=== PATIENT | female | born 1990 | race Caucasian/White ===

== ENCOUNTER 2017-02-10 10:01 | Inpatient (IN) | payer OTHER ==
[~2017-02-10] VITALS: Ht 157.5 cm; Wt 74.8 kg
[2017-02-10 12:41] LABS: BASOPHIL % 0.2 % (0-2); PLATELET COUNT 329 x10^3mcL (130-400); RED CELL DISTRIBUTION WIDTH 13.5 % (11.5-14.5)
[2017-02-10 13:02] LABS: CALCIUM 8.9 mg/dL (8.5-10.1); CHLORIDE SERUM 102 mmol/L (98-107); CREATININE SERUM 0.7 mg/dL (0.6-1.0); GFR1 > 60 mL/min; GLUCOSE SERUM 100 mg/dL (74-106); SODIUM SERUM 137 mmol/L (136-145)
[2017-02-10 13:07] LABS: ALBUMIN 3.9 g/dL (3.4-5.0); ALKALINE PHOSPHATASE 71 U/L (46-116); ALT/SGPT 35 U/L (14-59); AMYLASE 80 U/L (25-115); AST/SGOT 23 U/L (15-37); BILIRUBIN TOTAL 0.3 mg/dL (0.20-1.00); LIPASE 222 IU/L (73-393); TOTAL PROTEIN, SERUM 7.6 g/dL (6.4-8.2)
[2017-02-10 14:10] LABS: T3 TOTAL 1.29 ng/mL
[2017-02-10 14:17] LABS: PHOSPHOROUS 3.4 mg/dL (2.5-4.9)
[2017-02-10 14:25] LABS: FREE T4 0.95 ng/dL (0.76-1.46); FREE THYROXINE INDEX 2.5 ug/dL (1.4-4.5); T4(THYROXINE) 8.5 ug/dL (4.7-13.3)
[2017-02-10 15:04] LABS: microscopic required? NO
[2017-02-10 15:36] LABS: AMPHETAMINE QUAL UR NONE DETECTED (NEG <=1000)
[2017-02-10 16:22] LABS: UA SPECIFIC GRAVITY 1.015 (1.005-1.035); urine erythrocyte NEGATIVE (NEGATIVE)
[2017-02-10 17:11] VITALS: BP 116/74
[2017-02-11 06:20] LABS: BASOPHIL % 0.1 % (0-2); PLATELET COUNT 302 x10^3mcL (130-400); RED CELL DISTRIBUTION WIDTH 13.5 % (11.5-14.5)
[2017-02-11 06:38] LABS: CALCIUM 8.3 mg/dL (8.5-10.1); CARBON DIOXIDE 24.1 mmol/L (21-32); CHLORIDE SERUM 104 mmol/L (98-107); CREATININE SERUM 0.7 mg/dL (0.6-1.0); GFR1 > 60 mL/min; GLUCOSE SERUM 113 mg/dL (74-106); MAGNESIUM 1.8 mg/dL (1.8-2.4); PHOSPHOROUS 3.5 mg/dL (2.5-4.9); POTASSIUM SERUM 4.3 mmol/L (3.5-5.1); SODIUM SERUM 138 mmol/L (136-145)
[2017-02-11 06:53] VITALS: BP 109/61
[2017-02-11 09:40] VITALS: BP 106/60
[2017-02-11 18:08] VITALS: BP 109/64
[2017-02-11 21:56] VITALS: BP 104/69
[2017-02-12] MEDS ORDERED: APAP/HYDROCODON1 T11 PO (05:28)
[2017-02-12] MEDS ORDERED: COLACE100 MG PO (05:28)
[2017-02-12] MEDS ORDERED: GAS RELIEF 8080 MG PO (05:28)
[2017-02-12] MEDS ORDERED: LEVAQUIN750 MG PO (05:29)
[2017-02-12] MEDS ORDERED: FLORASTOR1 CAP PO (05:30)
[2017-02-12 06:23] LABS: BASOPHIL % 0.4 % (0-2); PLATELET COUNT 247 x10^3mcL (130-400); RED CELL DISTRIBUTION WIDTH 13.1 % (11.5-14.5)
[2017-02-12 06:41] VITALS: BP 101/66
[2017-02-12 09:25] VITALS: BP 115/66
[2017-02-12 09:32] VITALS: BP 115/66
== END 2017-02-12 14:25 | disposition home or self-care (01) | DRG 225 ==
LOC: ED 10:01 → DU 13:33 → MU 13:33 → DU 16:10 → MU 20:42
PROVIDERS: Specialist; Surgery; ADMIT Family Medicine
PROC: 0UQ04ZZ Repair Right Ovary, Percutaneous Endoscopic Approach (ICD-10-PCS; 2017-02-10)
PROC: 0DTJ4ZZ Resection of Appendix, Percutaneous Endoscopic Approach (ICD-10-PCS; principal; 2017-02-10 15:30)
DX: K35.80 Unspecified acute appendicitis (principal); K66.1 Hemoperitoneum; E66.9 Obesity, unspecified; N83.291 Other ovarian cyst, right side; E78.5 Hyperlipidemia, unspecified; Z53.29 Procedure and treatment not carried out because of patient's decision for other reasons; D72.829 Elevated white blood cell count, unspecified; E78.1 Pure hyperglyceridemia; Z90.49 Acquired absence of other specified parts of digestive tract; Z68.30 Body mass index [BMI] 30.0-30.9, adult
CPT/HCPCS: 83880; 84439; 94150; J0330; J0694; J1170; J1885; J2270; J2405; J2704; J2710; J3010; J3490; J7030; J7120

== ENCOUNTER 2017-08-21 10:49 | Emergency (ER) | payer OTHER ==
[~2017-08-21 10:49] MED LIST: APAP/HYDROCODON1 T11 PO; COLACE100 MG PO; FLORASTOR1 CAP PO; GAS RELIEF 8080 MG PO; LEVAQUIN750 MG PO
[2017-08-21 12:37] LABS: BASOPHIL % 0.3 % (0-2); PLATELET COUNT 348 x10^3mcL (130-400)
[2017-08-21 12:54] LABS: CARBON DIOXIDE 30.6 mmol/L (21-32); CHLORIDE SERUM 103 mmol/L (98-107); CREATININE SERUM 0.6 mg/dL (0.6-1.0); GFR1 > 60 mL/min; GLUCOSE SERUM 105 mg/dL (74-106); POTASSIUM SERUM 3.8 mmol/L (3.5-5.1); SODIUM SERUM 141 mmol/L (136-145)
[2017-08-21 12:55] LABS: RED CELL DISTRIBUTION WIDTH 15.6 % (11.5-14.5)
[2017-08-21 13:06] LABS: ALKALINE PHOSPHATASE 63 U/L (46-116); ALT/SGPT 24 U/L (14-59); AST/SGOT 22 U/L (15-37); BILIRUBIN TOTAL 0.39 mg/dL (0.20-1.00); CHOLESTEROL 173 mg/dL (<200); TOTAL PROTEIN, SERUM 7.5 g/dL (6.4-8.2)
[2017-08-21 13:57] VITALS: BP 118/61
== END 2017-08-21 13:57 | disposition home or self-care (01) ==
LOC: ED 10:49
PROVIDERS: Emergency Medicine
DX: R53.1 Weakness (principal); R20.0 Anesthesia of skin; D64.9 Anemia, unspecified
CPT/HCPCS: 36415

== ENCOUNTER 2017-11-13 10:55 | Emergency (ER) | payer OTHER ==
[~2017-11-13] VITALS: Ht 157.5 cm; Wt 73.0 kg
[2017-11-13 11:00] VITALS: Ht 157.5 cm; Wt 73.0 kg
[2017-11-13 14:29] LABS: BASOPHIL % 0.8 % (0-2); PLATELET COUNT 290 x10^3mcL (130-400)
[2017-11-13 14:39] LABS: RED CELL DISTRIBUTION WIDTH 16.2 % (11.5-14.5)
[2017-11-13 15:04] LABS: microscopic required? YES; urine erythrocyte 2+ (NEGATIVE)
[2017-11-13 16:30] VITALS: BP 122/75
== END 2017-11-13 17:24 | disposition home or self-care (01) ==
LOC: ED 10:55
PROVIDERS: Emergency Medicine
DX: O03.4 Incomplete spontaneous abortion without complication (principal); Z3A.00 Weeks of gestation of pregnancy not specified; Z90.49 Acquired absence of other specified parts of digestive tract
CPT/HCPCS: 36415

== ENCOUNTER 2018-03-06 08:40 | Emergency (ER) | payer OTHER ==
[~2018-03-06] VITALS: Ht 160 cm; Wt 68.0 kg
[2018-03-06 08:45] VITALS: BP 113/78; Ht 160 cm; Wt 68.0 kg
== END 2018-03-06 09:40 | disposition home or self-care (01) ==
LOC: ED 08:40
DX: S92.212A Displaced fracture of cuboid bone of left foot, initial encounter for closed fracture (principal); S80.211A Abrasion, right knee, initial encounter; K21.9 Gastro-esophageal reflux disease without esophagitis; Z90.49 Acquired absence of other specified parts of digestive tract; X58.XXXA Exposure to other specified factors, initial encounter; Y93.89 Activity, other specified; Y92.832 Beach as the place of occurrence of the external cause; Y99.8 Other external cause status

== ENCOUNTER 2018-10-02 20:18 | Inpatient (IN) | payer OTHER ==
[~2018-10-02] VITALS: Ht 160 cm; Wt 75.4 kg
[2018-10-02 20:29] VITALS: Ht 160 cm; Wt 75.4 kg
[2018-10-02 21:59] LABS: BASOPHIL % 0.4 % (0-2); PLATELET COUNT 320 x10^3mcL (130-400)
[2018-10-02 22:03] LABS: RED CELL DISTRIBUTION WIDTH 15.6 % (11.5-14.5)
[2018-10-03 01:36] LABS: CALCIUM 8.7 mg/dL (8.5-10.1); CARBON DIOXIDE 25.2 mmol/L (21-32); CHLORIDE SERUM 103 mmol/L (98-107); CREATININE SERUM 0.8 mg/dL (0.6-1.0); GFR1 > 60 mL/min; GLUCOSE SERUM 120 mg/dL (74-106); POTASSIUM SERUM 3.9 mmol/L (3.5-5.1); SODIUM SERUM 137 mmol/L (136-145)
[2018-10-03 02:34] VITALS: BP 113/70
[2018-10-03 03:37] LABS: UA SPECIFIC GRAVITY 1.025 (1.005-1.035); microscopic required? YES; urine erythrocyte 3+ (NEGATIVE)
[2018-10-03 05:53] VITALS: BP 98/58
[2018-10-03 08:07] VITALS: BP 91/57
[2018-10-03 09:53] LABS: BASOPHIL % 0.3 % (0-2); PLATELET COUNT 230 x10^3mcL (130-400)
[2018-10-03 09:54] LABS: RED CELL DISTRIBUTION WIDTH 15.8 % (11.5-14.5)
[2018-10-03 12:05] VITALS: BP 98/68
[2018-10-03 17:40] VITALS: BP 121/64
[2018-10-03 21:07] VITALS: BP 106/55
[2018-10-04 05:04] VITALS: BP 111/67
[2018-10-04 09:29] VITALS: BP 108/55
[2018-10-04 13:46] VITALS: BP 108/55
== END 2018-10-04 15:20 | disposition home or self-care (01) | DRG 544 ==
LOC: ED 20:18 → MU 10-03 00:45
PROVIDERS: Emergency Medicine; Obstetrics & Gynecology; ADMIT Internal Medicine
PROC: 0UPD7HZ Removal of Contraceptive Device from Uterus and Cervix, Via Natural or Artificial Opening (ICD-10-PCS; 2018-10-03)
PROC: 10D17ZZ Extraction of Products of Conception, Retained, Via Natural or Artificial Opening (ICD-10-PCS; principal; 2018-10-03 11:30)
DX: O03.1 Delayed or excessive hemorrhage following incomplete spontaneous abortion (principal); D64.9 Anemia, unspecified; T83.32XA Displacement of intrauterine contraceptive device, initial encounter; Y83.8 Other surgical procedures as the cause of abnormal reaction of the patient, or of later complication, without mention of misadventure at the time of the procedure; Y92.89 Other specified places as the place of occurrence of the external cause
CPT/HCPCS: C1758; J1885; J1956; J2060; J2250; J2270; J2405; J2550; J3010; J7030; Q0092

== ENCOUNTER 2018-10-08 17:04 | Inpatient (IN) | payer OTHER ==
[~2018-10-08] VITALS: Ht 160 cm; Wt 72.4 kg
[2018-10-08 17:11] VITALS: Ht 160 cm; Wt 72.4 kg
[2018-10-08 17:57] LABS: UA SPECIFIC GRAVITY 1.015 (1.005-1.035); microscopic required? YES; urine erythrocyte 3+ (NEGATIVE)
[2018-10-08 18:01] LABS: BASOPHIL % 0.4 % (0-2)
[2018-10-08 18:04] LABS: PLATELET COUNT 401 x10^3mcL (130-400)
[2018-10-08 18:05] LABS: AMPHETAMINE QUAL UR NONE DETECTED (See below)
[2018-10-08 18:09] LABS: CALCIUM 9.1 mg/dL (8.5-10.1); CARBON DIOXIDE 23.5 mmol/L (21-32); CHLORIDE SERUM 101 mmol/L (98-107); CREATININE SERUM 0.8 mg/dL (0.6-1.0); GFR1 > 60 mL/min; GLUCOSE SERUM 160 mg/dL (74-106); POTASSIUM SERUM 3.4 mmol/L (3.5-5.1); SODIUM SERUM 138 mmol/L (136-145)
[2018-10-08 18:16] LABS: IRON 163 ug/dL (50-170)
[2018-10-08 18:18] LABS: TOTAL IRON BINDING CAPACITY 464 ug/dL (250-450)
[2018-10-08 18:21] LABS: ALBUMIN 3.8 g/dL (3.4-5.0); ALKALINE PHOSPHATASE 74 U/L (46-116); ALT/SGPT 31 U/L (14-59); AMYLASE 61 U/L (25-115); AST/SGOT 23 U/L (15-37); BILIRUBIN TOTAL 0.1 mg/dL (0.20-1.00); HDL CHOLESTEROL 44 mg/dL (40-60); LIPASE 174 IU/L (73-393); MAGNESIUM 1.9 mg/dL (1.8-2.4); T4(THYROXINE) 9.9 ug/dL (4.7-13.3); TOTAL PROTEIN, SERUM 7.5 g/dL (6.4-8.2)
[2018-10-08 18:22] LABS: CHOLESTEROL 212 mg/dL (<200)
[2018-10-08 21:19] VITALS: BP 119/77
[2018-10-09 05:34] VITALS: BP 101/63
[2018-10-09 06:30] LABS: CALCIUM 8.5 mg/dL (8.5-10.1); CARBON DIOXIDE 25.1 mmol/L (21-32); CHLORIDE SERUM 105 mmol/L (98-107); CREATININE SERUM 0.7 mg/dL (0.6-1.0); GFR1 > 60 mL/min; GLUCOSE SERUM 99 mg/dL (74-106); POTASSIUM SERUM 3.7 mmol/L (3.5-5.1); SODIUM SERUM 140 mmol/L (136-145)
[2018-10-09 06:38] LABS: BASOPHIL % 0.3 % (0-2); RED CELL DISTRIBUTION WIDTH 14.2 % (11.5-14.5)
[2018-10-09 06:50] LABS: PLATELET COUNT 415 x10^3mcL (130-400)
[2018-10-09 09:49] VITALS: BP 104/63
[2018-10-09 10:44] VITALS: BP 104/63
== END 2018-10-09 11:24 | disposition home or self-care (01) | DRG 204 ==
LOC: ED 17:04 → DU 20:08
PROVIDERS: Emergency Medicine; ADMIT Internal Medicine
DX: R55 Syncope and collapse (principal); D62 Acute posthemorrhagic anemia; K21.9 Gastro-esophageal reflux disease without esophagitis; N93.9 Abnormal uterine and vaginal bleeding, unspecified; R00.0 Tachycardia, unspecified; Z68.28 Body mass index [BMI] 28.0-28.9, adult; Z90.49 Acquired absence of other specified parts of digestive tract
CPT/HCPCS: 82962; J2550; J7030; Q0092

== ENCOUNTER 2018-12-05 10:34 | Emergency (ER) | payer OTHER ==
[~2018-12-05] VITALS: Ht 160 cm; Wt 74.8 kg
[2018-12-05 10:40] VITALS: Ht 160 cm; Wt 74.8 kg
[2018-12-05 11:23] LABS: PLATELET COUNT 341 x10^3mcL (130-400)
[2018-12-05 11:26] LABS: RED CELL DISTRIBUTION WIDTH 19.9 % (11.5-14.5)
[2018-12-05 11:29] LABS: CALCIUM 8.4 mg/dL (8.5-10.1); CARBON DIOXIDE 27.2 mmol/L (21-32); CHLORIDE SERUM 102 mmol/L (98-107); CREATININE SERUM 0.7 mg/dL (0.6-1.0); GFR1 > 60 mL/min; GLUCOSE SERUM 103 mg/dL (74-106); POTASSIUM SERUM 3.7 mmol/L (3.5-5.1); SODIUM SERUM 138 mmol/L (136-145)
[2018-12-05 11:33] LABS: microscopic required? NO
[2018-12-05 11:34] LABS: ALBUMIN 3.5 g/dL (3.4-5.0); ALKALINE PHOSPHATASE 64 U/L (46-116); ALT/SGPT 22 U/L (14-59); AST/SGOT 17 U/L (15-37); BILIRUBIN TOTAL 0.2 mg/dL (0.20-1.00); TOTAL PROTEIN, SERUM 7.7 g/dL (6.4-8.2)
[2018-12-05 11:46] LABS: UA SPECIFIC GRAVITY <=1.005 (1.005-1.035); urine erythrocyte NEGATIVE (NEGATIVE)
[2018-12-05 12:19] VITALS: BP 135/65
[2018-12-05 12:57] LABS: BAND NEUTROPHIL 1 % (0-10); BASOPHIL 0 % (0-2); MONOCYTE 10 % (0-7); SEGMENTED NEUTROPHILS 66 % (37-75)
[2018-12-05 12:58] LABS: PLATELET MORPHOLOGY PLATELETS NORMAL; rbc morphology (normal/abnorm) ABNORMAL (NORMAL)
== END 2018-12-05 12:58 | disposition home or self-care (01) ==
LOC: ED 10:34
PROVIDERS: Emergency Medicine
DX: D64.9 Anemia, unspecified (principal); K21.9 Gastro-esophageal reflux disease without esophagitis; Z90.49 Acquired absence of other specified parts of digestive tract; Z90.89 Acquired absence of other organs
CPT/HCPCS: 87804; J2405; J7030